=== PATIENT | female | born 1950 | race Two or more races ===

== ENCOUNTER 2019-12-02 08:04 | Outpatient (AMBR) | payer MEDICARE, MEDICAID, SELFPAY ==
--- NOTE | 2019-12-02 08:39 | PTNOTE_ITS ---
PT OP Initial Eval Patient Information Visit Reasons: l/s Medical Diagnosis: M54.16 Treatment Dx #1: Back Pain Start of Care: 12/02/19 Date of Onset: 2 years ago Initial Assessment Subjective Pt is a 69 y/o female c/o chronic back pain (08/11) without tramadol started 2 years ago after she retired. Pt notice tingling down the left LE but no numbness. Pt has limitation with sit to stand, prolonged standing, lifting, walking, chores, recreational activities, and performing normal ADLs. Pt mention that she does not want surgery and wants to manage her back conservatively. Objective L/S AROM: all motions are WFL except extension towards end range with pain Hip PROM: all motions are WFL except IR bilaterally Hip MMTs Glute Med: 3/5 Glute Max: 3/5 Muscle Length: Hs tightness bilaterally Palpation: TTP L3-L4 facets Assessment Pt demonstrate back pain with mobility deficits with MRI finding of discogenic lesion leading to decline function. Pt will attempt physical therapy if pain persist Pt will be refer back to pain management. Short Term and [facility] Goals 1) Decrease back pain to 4/10 in 6 wks to be able to sit and stand longer than 1 hr 2) Increase L/S AROM WNL in 6 wks to be able to perform chores 3) Increase core strength WFL to be able to perform yardwork 4) Increase hip MMTs to 4-/5 in 6 wks to be able to perform ambulation more than 1 hr 5) Indep with HEP Treatment Plan 1) Manual Therapy 2) Therapeutic Activities 3) Therapeutic Exercises 4) Modalities (ice, heat) Frequency and Duration 2 x wk for 4 wks Certification Dates: 12/02/19 to 03/02/20 Office Procedures PT Procedures PT Date of Service: 12/02/19 OP PT Eval Mod Complex 30 minutes: Yes
== END 2019-12-02 23:59 | disposition home or self-care (01) ==
PROVIDERS: PCP Family Medicine; Referring Provider Family Medicine; Visit Provider Physical Medicine & Rehabilitation Pain Medicine
DX: M54.16 Radiculopathy, lumbar region (principal); M54.5 Low back pain; G89.29 Other chronic pain; R26.2 Difficulty in walking, not elsewhere classified
CPT/HCPCS: 97162

== ENCOUNTER 2019-12-22 08:00 | Outpatient (AMBR) | payer MEDICARE, MEDICAID, SELFPAY ==
--- NOTE | 2019-12-06 08:50 | PT.ODAYNRPT ---
PT Outpatient Daily Note Date of Service: December 06, 2019 OP Daily Note Visit Reasons: l/s radiculitis Outpatient Physical Therapy Treatment Date: 12/06/19 Subjective: Pt's back feels good today. Pt has a large yardwork and she rakes her leave and sometimes will have back pain. Objective: Please see flow chart for list of ther ex performed Assessment: decrease back pain after therapy session. cues to correct to maintain 3 sec hold and perform all other exercises correctly. Heat seems to help patient relax and perform exercises. Plan: Continue with PT Length of Time (minutes) of Treatment: 30 Minutes Office Procedures PT Procedures PT Date of Service: 12/06/19 Therapeutic Exercise 30 minutes: Yes
--- NOTE | 2019-12-12 09:34 | PTNOTE_ITS ---
PT Outpatient Daily Note Date of Service: December 12, 2019 OP Daily Note Visit Reasons: l/s radiculitis Outpatient Physical Therapy Treatment Date: 12/12/19 Subjective: pt states she was sore after two days from last visit. Objective: see flow sheet. Assessment: observed pt during hip fall out exercise using the band and she lacks ROM and stability as she can;t keep her pelvis down. she lifts with slight rotation as she drops each hip down to compensate. noted good core activation during her exercise. she was able to demonstrate good mobility while using the SB fwd and side to side. she was fatigue post sci-fit. she had no complaints and questions post treatment. Plan: continue POC per PT. Length of Time (minutes) of Treatment: 30 Minutes LEAF CONDITIONER HELPER Service Modifier Method I: Divide the number of min of care provided by the LEAF CONDITIONER HELPER/GAUTAM by the total min of care provided then multiply by 100. If greater than 11 percent modifier is required. Method II: Divide the total time of care provided to patient by 10 (round to the nearest whole number) and add 1 min. to set the minimum time requirement. If treatment total was 60 min., then 10% of 6 min Did LEAF CONDITIONER HELPER provide more than 10% of the care?: Yes PT CQ modifier applied: CQ Modifier applied Office Procedures PT Procedures PT Date of Service: 12/06/19 Therapeutic Exercise 30 minutes: Yes PT Procedures PT Date of Service: 12/12/19 Therapeutic Exercise 30 minutes: Yes
--- NOTE | 2019-12-14 09:07 | PT.ODAYNRPT ---
PT Outpatient Daily Note Date of Service: December 14, 2019 OP Daily Note Visit Reasons: l/s radiculitis Outpatient Physical Therapy Treatment Date: 12/14/19 Subjective: Pt stated that she wants to know how to lift properly. Pt still has back pain but wants to prevent from further damage Objective: Please see flow chart for list of ther ex performed Assessment: While performing LTR exercises on the bed. Pt almost fell off the bed; require physical support from therapist to get her balance and prevent fall. Added more t/s and l/s rotation exercises with good tolerance. Instructed Pt on proper lifting technique and was able to demonstrate safely with practice. Plan: Continue with PT Length of Time (minutes) of Treatment: 30 Minutes Office Procedures PT Procedures PT Date of Service: 12/06/19 Therapeutic Exercise 30 minutes: Yes PT Procedures PT Date of Service: 12/14/19 Therapeutic Exercise 30 minutes: Yes PT Procedures PT Date of Service: 12/12/19 Therapeutic Exercise 30 minutes: Yes
--- NOTE | 2019-12-22 08:32 | PT.ODS1RPT ---
PT OP Progress/Discharge Note Date of Service: December 22, 2019 Progress Note/DC Note Progress Note/Discharge Note: DC Note Patient Information Visit Reasons: l/s radiculitis Medical Diagnosis: M54.16 Treatment Dx #1: Back Pain Service Continue Service or Discharge: Discharge Discharge Date: 12/22/19 Status Subjective: Pt mention that her back is still stiff and hurts intermittently. Pt takes pain pills as needed to help manage her back pain. Pt has been able to walk longer, stand, perform chores, and self care with less limitation. Pt will like today to be last PT session. Pt will continue her exercises at home since she does exercises thursday thru thursday. Objective: L/S AROM: all motions are WFL Hip PROM: all motions are WFL Hip MMTs Glute Med: 3/5 Glute Max: 3/5 Assessment: Pt demonstrate improvement with L/S mobility and core strength, however, continues to have pain leading to difficulty with functional tasks. Pt will no longer benefit from physical therapy due to minimal progression towards goals. Pt was instructed on HEP last session and educated to continue to maintain overall mobility. Pt performed all exercises safely, thank you for your referrals. Plan: D/C home with HEP and follow up with MD CLAYTON Office Procedures PT Procedures PT Date of Service: 12/06/19 Therapeutic Exercise 30 minutes: Yes PT Procedures PT Date of Service: 12/14/19 Therapeutic Exercise 30 minutes: Yes PT Procedures PT Date of Service: 12/22/19 Therapeutic Exercise 30 minutes: Yes PT Procedures PT Date of Service: 12/12/19 Therapeutic Exercise 30 minutes: Yes
== END 2019-12-31 23:59 | disposition home or self-care (01) ==
PROVIDERS: PCP Family Medicine; Referring Provider Family Medicine; Visit Provider Physical Medicine & Rehabilitation Pain Medicine
DX: M54.16 Radiculopathy, lumbar region (principal); G89.29 Other chronic pain; M54.5 Low back pain
CPT/HCPCS: 36415; 84145; 85025; 85652; 86140; 97110

== ENCOUNTER → 2024-10-04 | Outpatient (CLI) | payer OTHER, SELFPAY ==
--- NOTE | 2024-10-04 15:36 | XR_ITS ---
Examination: PA lateral chest 2 views TECHNIQUE: Upright PA lateral chest 2 views Exam date and time: October 04, 2024 1550 hours INDICATIONS: Preop FINDINGS: Normal heart size No pneumonia or pulmonary edema Moderate osteopenia IMPRESSION: No active disease
== END | disposition home or self-care (01) ==
PROVIDERS: PCP Family Medicine; Referring Provider Student in an Organized Health Care Education/Training Program; Visit Provider Student in an Organized Health Care Education/Training Program
DX: Z01.818 Encounter for other preprocedural examination (principal); R05.9 Cough, unspecified
CPT/HCPCS: 71046

== ENCOUNTER → 2024-10-10 | Outpatient (CLI) | payer OTHER, SELFPAY ==
--- NOTE | 2024-10-10 16:10 | EKG_ITS ---
[facility] Test Date: 2024-10-10 Pat Name: ADRIAN BELTRAN Department: Room: - Gender: Female [employer]iser: DANNY : 1950 Requested By: Aki Hooker Order Number: [id number] Reading MD: Aki Hooker Measurements Intervals [place] Rate: 71 P: 69 [place]: 203 QRS: 97 QRSD: 113 T: 59 QT: 410 QTc: 448 Interpretive Statements SINUS RHYTHM BORDERLINE RIGHT AXIS DEVIATION MODERATE INTRAVENTRICULAR CONDUCTION DELAY No previous ECG available for comparison /[id number]/[id number]
[2024-10-10 16:45] LABS: Basophils # (Auto) 0.1 Thou/mm3 (0.0-0.2); Basophils % (Auto) 1 % (0-2.5); Eosinophils # (Auto) 0.4 Thou/mm3 (0.0-0.5); Eosinophils % (Auto) 4 % (0-10); Hemoglobin 13.2 g/dL (12.0-16.0); Immature Granulocytes % (Auto) 0 % (0-0); Immature Granulocytes Auto 0.02 Thou/mm3 (0.00-0.00); Lymphocytes # (Auto) 2.5 Thou/mm3 (1.0-4.8); Lymphocytes % (Auto) 25 % (10-50); Mean Corpuscular HGB Conc 33.8 g/dl (31.0-37.0); Mean Corpuscular Hemoglobin 30.5 pg (25.0-35.0); Mean Corpuscular Volume 90 fL (80-100); Monocytes # (Auto) 0.8 Thou/mm3 (0.0-0.8); Monocytes % (Auto) 8 % (0-12); Neutrophils # (Auto) 6.1 Thou/mm3 (1.8-7.7); Neutrophils % (Auto) 62 % (37-80); Nucleated Red Blood Cell % 0 /100 WBC (0); Platelet Count 367 Thou/mm3 (140-440); RDW Standard Deviation 46.7 fL (36.4-46.3); Red Blood Count 4.33 Miln/mm3 (4.00-5.20); White Blood Count 9.9 Thou/mm3 (3.6-11.0)
[2024-10-10 16:56] LABS: Alanine Aminotransferase 28 U/L (10-49); Albumin, Serum 4.5 gm/dL (3.4-4.8); Albumin/Globulin Ratio 2.8 (1.2-2.2); Alkaline Phosphatase 129 U/L (46-116); Anion Gap 7 (7-16); Aspartate Amino Transferase 25 U/L (0-34); BUN/Creatinine Ratio 29 Ratio (12-20); Bilirubin,Total 0.3 mg/dL (0.3-1.2); Blood Urea Nitrogen 23 mg/dL (9-23); Calcium 9.5 mg/dL (8.3-10.6); Calcium (Corrected) 9.5 mg/dL (8.5-10.1); Carbon Dioxide 27.6 mMol/L (20.0-31.0); Chloride 105 mMol/L (98-107); Creatinine (Component) 0.8 mg/dL (0.6-1.3); Globulin 1.6 gm/dL (2.3-3.5); Glucose 164 mg/dL (74-106); Osmolality,Calculated 287 (275-295); Potassium 4.5 mMol/L (3.4-5.1); Sodium 140 mMol/L (136-145); Total Protein 6.1 gm/dL (5.7-8.2); eGFR > 60 See Note
[2024-10-10 17:04] LABS: Glucose Estimated Average 137 mg/dL (80-131); Hemoglobin A1C 6.4 % Hgb (4.8-6.0)
== END | disposition home or self-care (01) ==
PROVIDERS: PCP Internal Medicine; Referring Provider Orthopaedic Surgery; Visit Provider Orthopaedic Surgery
DX: Z01.818 Encounter for other preprocedural examination (principal); Z01.812 Encounter for preprocedural laboratory examination
CPT/HCPCS: 36415; 80053; 83036; 85025; 87081; 93005